=== PATIENT | female | born 2000 | race African-American/Black ===

== ENCOUNTER 2018-09-08 02:41 | Emergency (ER) | payer OTHER | END 2018-09-08 03:35 | disposition home or self-care (01) | LOC: ERS 02:41 | DX: O9A.212 Injury, poisoning and certain other consequences of external causes complicating pregnancy, second trimester (principal); S05.02XA Injury of conjunctiva and corneal abrasion without foreign body, left eye, initial encounter; R10.32 Left lower quadrant pain; Y04.0XXA Assault by unarmed brawl or fight, initial encounter; Z3A.16 16 weeks gestation of pregnancy | CPT/HCPCS: 36415; 86900; 86901; 99284 ==

== ENCOUNTER 2019-08-08 19:56 | Emergency (ER) | payer BC, OTHER ==
[2019-08-08] MEDS ORDERED: Acetaminophen 500 MG TAB ONE ×2 (20:42→20:49)
[2019-08-09 12:49] LABS: SARS-CoV-2 MS2 Positive; SARS-CoV-2 N Gene Negative; SARS-CoV-2 S Gene Negative; SARS-CoV-2 orf1ab Negative
== END 2019-08-08 21:10 | disposition home or self-care (01) ==
LOC: ERS 19:56
DX: R05 Cough (principal); R19.7 Diarrhea, unspecified; R51 Headache; Z20.828 Contact with and (suspected) exposure to other viral communicable diseases; F31.9 Bipolar disorder, unspecified; J45.909 Unspecified asthma, uncomplicated
CPT/HCPCS: 87635; 99284; U0003